=== PATIENT | male | born 1940 | race Caucasian/White ===

== ENCOUNTER 2017-07-15 09:58 | Emergency (ER) | payer MEDICARE ==
[~2017-07-15] VITALS: Ht 170.2 cm; Wt 86.0 kg
[2017-07-15 09:59] VITALS: BP 146/84; PULSE 125; RESP 20; TEMP 98.7; O2SAT 96
[2017-07-15] MEDS ORDERED: ROSU40 PO (10:14)
[2017-07-15] MEDS ORDERED: BENI40TA3 PO (10:14)
[2017-07-15] MEDS ORDERED: LEVO125T4 PO (10:14)
--- NOTE | 2017-07-15 10:40 | PD ---
HPI . back pain x 3 weeks Chief Complaint: Back/ Neck Pain or Injury Time Seen by Provider: 10:39 Travel History International Travel<30 days: No Contact w/Intl Traveler<30days: No Traveled to known affect area: No History of Present Illness HPI 77-year-old male with history of hyperlipidemia, hypertension and arthritis here with complaints of back pain x 3 weeks. Patient tells me that 3 years ago he had similar issues with his back and was told that he had either a pop or bulging disc. Patient says that he started having pain in his mid back for the past 3 weeks. He rates the pain as 9/10 without radiation elsewhere. He has tried [id number] Tylenol and Motrin without relief. He tells me he does have a very curved back, but that he has had it for years and that it hasn't caused him much issues. On presentation his heart rate is elevated. He denies any history of arrhythmia. He denies any chest pain or shortness of breath. He denies any recent illness, fever or chills. He denies bowel or bladder dysfunction. No saddle anesthesia. NO recent injury or trauma. He is accompanied by his . PFSH Past Medical History Cancer: Yes (lymphoma) High Cholesterol: Yes Chemotherapy: Yes Radiation Therapy: Yes Thyroid Disease: Yes Social History Alcohol Use: Yes (occassional) Tobacco Use: No Substance Use: No Allergies-Medications (Allergen,Severity, Reaction): Coded Allergies: No Known Allergies (Unverified , 07/15/17) Reported Meds & Prescriptions Reported Meds & Active Scripts Active Flexeril (Cyclobenzaprine HCl) 5 Mg Tab 5 Mg PO TID Reported Levothyroxine (Levothyroxine Sodium) 125 Mcg Tab 125 Mcg PO DAILY Benicar (Olmesartan) 40 Mg Tab 40 Mg PO DAILY Crestor (Rosuvastatin Calcium) 40 Mg Tab 40 Mg PO DAILY Review of Systems General / Constitutional: No: Fever Eyes: No: Visual changes HENT: No: Headaches Cardiovascular: No: Chest Pain or Discomfort Respiratory: No: Shortness of Breath Gastrointestinal: No: Abdominal Pain Genitourinary: No: Dysuria Musculoskeletal: Positive: Myalgias (right T spine), Pain (back pain) Skin: No Rash Neurologic: No: Weakness Psychiatric: No: Depression Endocrine: No: Polydipsia Hematologic/Lymphatic: No: Easy Bruising Physical Exam Narrative GENERAL: AAO x 3, no acute distress, Well-nourished, well-developed patient. SKIN: Warm and dry. No visible rashes or bruising. HEAD: Normocephalic and atraumatic. EYES: No scleral icterus. No injection or drainage. EOM intact, PERRLA ENT: No nasal drainage noted. Mucous membranes pink. Airway patent. NECK: Supple, trachea midline. No JVD. CARDIOVASCULAR: Tachycardic on examination at 108 RESPIRATORY: Breath sounds equal bilaterally. No accessory muscle use. No rhonchi or rales. GASTROINTESTINAL: Abdomen soft, non-tender, nondistended. EXTREMITIES: No cyanosis or edema. BACK: Significant kyphosis at T spine, paraspinal muscle tenderness on the right side of the T-spine. No tenderness along the actual spine or drop off. NEURO: CN II-12 intact, superintendent house strength normal b/l, UE and LE 5/5, no focal deficits, fully ambulatory, PSYCH: AAO x 3, normal affect. Data Data Last Documented VS Vital Signs Date Time Temp Pulse Resp B/P Pulse Ox O2 Delivery O2 Flow Rate FiO2 07/15/17 12:17 82 20 146/79 98 07/15/17 09:59 98.7 Room Air Orders Electrocardiogram (07/15/17 ) Complete Blood Count With Diff (07/15/17 10:48) Basic Metabolic Panel (Bmp) (07/15/17 10:48) Chest, Single Ap (07/15/17 ) Spine, Thoracic-Ap/Lat/Sw(3vw) (07/15/17 10:48) Urinalysis - C+S If Indicated (07/15/17 10:52) Ketorolac Inj (Toradol Inj) (07/15/17 11:00) Orphenadrine Inj (Norflex Inj) (07/15/17 11:00) Labs Laboratory Tests Test 07/15/17 11:04 White Blood Count 6.6 TH/MM3 Red Blood Count 5.22 MIL/MM3 Hemoglobin 16.0 GM/DL Hematocrit 48.2 % Mean Corpuscular Volume 92.2 FL Mean Corpuscular Hemoglobin 30.6 PG Mean Corpuscular Hemoglobin 33.2 % Concent Red Cell Distribution Width 13.9 % Platelet Count 162 TH/MM3 Mean Platelet Volume 10.1 FL Neutrophils (%) (Auto) 78.1 % Lymphocytes (%) (Auto) 14.9 % Monocytes (%) (Auto) 6.1 % Eosinophils (%) (Auto) 0.4 % Basophils (%) (Auto) 0.5 % Neutrophils # (Auto) 5.2 TH/MM3 Lymphocytes # (Auto) 1.0 TH/MM3 Monocytes # (Auto) 0.4 TH/MM3 Eosinophils # (Auto) 0.0 TH/MM3 Basophils # (Auto) 0.0 TH/MM3 CBC Comment DIFF FINAL Differential Comment Urine Color YELLOW Urine Turbidity CLEAR Urine pH 5.5 Urine Specific [place] 1.010 Urine Protein NEG mg/dL Urine Glucose (UA) NEG mg/dL Urine Ketones NEG mg/dL Urine Occult Blood TRACE Urine Nitrite NEG Urine Bilirubin NEG Urine Urobilinogen LESS THAN 2.0 MG/DL Urine Leukocyte Esterase NEG Urine RBC 1 /hpf Urine WBC LESS THAN 1 /hpf Microscopic Urinalysis Comment CULT NOT INDICATED Sodium Level 141 MEQ/L Potassium Level 4.2 MEQ/L Chloride Level 106 MEQ/L Carbon Dioxide Level 27.1 MEQ/L Anion Gap 8 MEQ/L Blood Urea Nitrogen 20 MG/DL Creatinine 1.35 MG/DL Estimat Glomerular Filtration 52 ML/MIN Rate Random Glucose 133 MG/DL Calcium Level 9.5 MG/DL MDM Medical Decision Making Medical Screen Exam Complete: Yes Emergency Medical Condition: Yes Medical Record Reviewed: Yes Differential Diagnosis pulled muscle, UTI, less likely nephrolithiasis, Narrative Course 77-year-old male here with complaints of back pain. On examination he does have some paraspinal muscle tenderness along his T- spine. He is tachycardic on examination, but seems to be a little bit anxious. I have ordered EKG, lab and x-rays. 1144: Patient's heart rate is improved. Labs thus far fairly unremarkable. X- rays have been ordered and are pending. He was given Toradol and Norflex for pain control. patient's pain is 5-6/10. Laboratory Tests Test 07/15/17 11:04 White Blood Count 6.6 TH/MM3 Red Blood Count 5.22 MIL/MM3 Hemoglobin 16.0 GM/DL Hematocrit 48.2 % Mean Corpuscular Volume 92.2 FL Mean Corpuscular Hemoglobin 30.6 PG Mean Corpuscular Hemoglobin 33.2 % Concent Red Cell Distribution Width 13.9 % Platelet Count 162 TH/MM3 Mean Platelet Volume 10.1 FL Neutrophils (%) (Auto) 78.1 % Lymphocytes (%) (Auto) 14.9 % Monocytes (%) (Auto) 6.1 % Eosinophils (%) (Auto) 0.4 % Basophils (%) (Auto) 0.5 % Neutrophils # (Auto) 5.2 TH/MM3 Lymphocytes # (Auto) 1.0 TH/MM3 Monocytes # (Auto) 0.4 TH/MM3 Eosinophils # (Auto) 0.0 TH/MM3 Basophils # (Auto) 0.0 TH/MM3 CBC Comment DIFF FINAL Differential Comment Urine Color YELLOW Urine Turbidity CLEAR Urine pH 5.5 Urine Specific [place] 1.010 Urine Protein NEG mg/dL Urine Glucose (UA) NEG mg/dL Urine Ketones NEG mg/dL Urine Occult Blood TRACE Urine Nitrite NEG Urine Bilirubin NEG Urine Urobilinogen LESS THAN 2.0 MG/DL Urine Leukocyte Esterase NEG Urine RBC 1 /hpf Urine WBC LESS THAN 1 /hpf Microscopic Urinalysis Comment CULT NOT INDICATED Sodium Level 141 MEQ/L Potassium Level 4.2 MEQ/L Chloride Level 106 MEQ/L Carbon Dioxide Level 27.1 MEQ/L Anion Gap 8 MEQ/L Blood Urea Nitrogen 20 MG/DL Creatinine 1.35 MG/DL Estimat Glomerular Filtration 52 ML/MIN Rate Random Glucose 133 MG/DL Calcium Level 9.5 MG/DL mild elevated of BUN/Creatinine; oral hydration Last Impressions Thoracic Spine X-Ray 07/15/17 1048 Signed Impressions: Service Date/Time: Saturday, July 15, 2017 11:45 - CONCLUSION: Minimal loss of vertebral body heights as described above. Acute compression on chronic can not be excluded. I have no prior films. MRI could be used to measure this question. Crow Macedo MD FACR In regards to the possible compression fracture. Patient does not have any pain in the Spine. His pain is along his paraspinal muscles on the right side T spine. His neuro exam is completely normal. He can have this followed as an outpatient. He is improved with toradol and norflex. I will provide him with a short course of muscle relaxers upon discharge. We have discussed the side effects. I discussed the case with my attending Dr. Stewart, who is in agreement with the treatment plan. EKG was reviewed by Dr. Ventura. I have discussed all results with patient and his at bedside. I recommend outpatient follow-up with his primary care provider. I also recommended he have this T-spine x-ray followed and have outpatient MRI. Patient verbalized understanding of instructions, questions were answered, and thanked me for their care. I advised them if their condition worsens, please return to the nearest emergency room for further care. Diagnosis Primary Impression: Muscle strain Patient Instructions: General Instructions Additional Instructions: Muscle relaxers can cause drowsiness. Do not drive, swim or operate heavy machinery while using these medications. Please return to emergency department if your symptoms return or worsen. Follow up with your primary care provider. Take medications as prescribed. Med/Other Pt SpecificInfo: Prescription(s) given Scripts Cyclobenzaprine (Flexeril)5 Mg Tab5 Mg PO TID #21 TAB Prov:Ty Ventura MD 07/15/17 Disposition: 01 DISCHARGE HOME Condition: Stable Kanchan Chávez Jul 15, 2017 10:40
[2017-07-15] MEDS ORDERED: ORPHENADRINE INJ 60 MG/2 ML AMP IM ONE (11:00)
[2017-07-15] MEDS ORDERED: KETOROLAC TROMETHAMINE 60 MG/2 ML (IM) VIAL IM ONE (11:00)
[2017-07-15 11:05] VITALS: BP_SYST 175; BP_SYST 191; BP_DIAS 102; BP_DIAS 93; PULSE 110; RESP 20; O2SAT 99
[2017-07-15 11:27] LABS: AUTOMATED NEUTROPHIL # 5.2 TH/MM3 (1.8-7.7); BASOPHIL % 0.5 % (0.0-2.0); EOSINOPHIL % 0.4 % (0.0-4.0); HEMATOCRIT 48.2 % (39.0-51.0); HEMO FLAGS DIFF FINAL; LYMPH % 14.9 % (9.0-44.0); MEAN CELL VOLUME 92.2 FL (80.0-100.0); MEAN CORPUSCULAR HEMOGLOBIN 30.6 PG (27.0-34.0); MEAN CORPUSCULAR HGB CONC 33.2 % (32.0-36.0); MONO % 6.1 % (0.0-8.0); NEUT % 78.1 % (16.0-70.0); PLATELET COUNT 162 TH/MM3 (150-450); RED BLOOD COUNT 5.22 MIL/MM3 (4.50-5.90); RED CELL DISTRIBUTION WIDTH 13.9 % (11.6-17.2); WHITE BLOOD COUNT 6.6 TH/MM3 (4.0-11.0)
[2017-07-15 11:30] VITALS: PULSE 99; RESP 20; O2SAT 99
[2017-07-15 11:35] LABS: BLOOD, URINE TRACE (NEG); GLUCOSE,URINE NEG (NEG); KETONE, URINE NEG (NEG); NITRITE,URINE NEG (NEG); PH, URINE 5.5 (5.0-8.5); URINE COLOR YELLOW (YELLW/STRAW)
[2017-07-15 11:40] LABS: COMMENT (UR) CULT NOT INDICATED; CULTURE IF INDICATED CULT NOT INDICATED
--- NOTE | 2017-07-15 11:55 | RADRPT ---
EXAM DATE/TIME: 07/15/2017 11:45 [facility] COMPARISON: No previous studies available for comparison. INDICATIONS : No known injury. Pain in mid to lower back for three weeks. MEDICAL HISTORY : Hypertension. SURGICAL HISTORY : None. ENCOUNTER: Initial ACUITY: 3 weeks PAIN SCORE: 7/10 LOCATION: Bilateral T and L spine FINDINGS: There are degenerative changes in the mid to lower thoracic spine with loss of minimal vertebral body height at T11 and T12. I have no prior films for comparison. Pedicles are intact. CONCLUSION: Minimal loss of vertebral body heights as described above. Acute compression on chronic can not be e xcluded. I have no prior films. MRI could be used to measure this question. Crow Macedo MD FACR on July 15, 2017 at 11:52 Board Certified Radiologist. This report was verified electronically.
--- NOTE | 2017-07-15 12:08 | RADRPT ---
EXAM DATE/TIME: 07/15/2017 11:41 [facility] COMPARISON: No previous studies available for comparison. INDICATIONS : No known injury. Pain in mid to lower back for three weeks. MEDICAL HISTORY : Hypertension. SURGICAL HISTORY : None. ENCOUNTER: Initial ACUITY: 3 weeks PAIN SCORE: 7/10 LOCATION: Bilateral T and L Spine. FINDINGS: AP view of the chest demonstrates a normal-sized cardiac silhouette. No effusion, consolidation, or p neumothorax is visualized. The bones and soft tissues demonstrate no acute abnormality. CONCLUSION: No acute cardiopulmonary abnormality is identified. Jose A Mcgowan MD on July 15, 2017 at 12:06 Board Certified Radiologist. This report was verified electronically.
[2017-07-15 12:12] LABS: BICARBONATE 27.1 MEQ/L (21.0-32.0); POTASSIUM 4.2 MEQ/L (3.5-5.1)
[2017-07-15 12:17] VITALS: BP 146/79; PULSE 82; RESP 20; O2SAT 98
[2017-07-15] MEDS ORDERED: CYCL5TAB PO (12:19)
--- NOTE | 2017-07-15 14:07 | EKG ---
Date Performed: 07/15/2017 Time Performed: 11:13:54 PTAGE: 77 years EKG: Baseline artifact present Sinus rhythm WITH FREQUENT VENTRICULAR PREMATURE COMPLEXES POSSIBLE LEFT ATRIAL ENLARGEMENT LOW QRS VOLTAGE IN [place] ECORDIAL LEADS INFERIOR MYOCARDIAL INFARCTION ABNORMAL ECG NO PREVIOUS TRACING DOCTOR: Avinash Matthews Interpretating Date/Time 07/15/2017 14:06:00
== END 2017-07-15 12:42 | disposition home or self-care (01) ==
LOC: NEPD 09:58
DX: S29.012A Strain of muscle and tendon of back wall of thorax, initial encounter (principal); R94.31 Abnormal electrocardiogram [ECG] [EKG]; R00.0 Tachycardia, unspecified; E07.9 Disorder of thyroid, unspecified; E78.5 Hyperlipidemia, unspecified; Z87.39 Personal history of other diseases of the musculoskeletal system and connective tissue; Z85.72 Personal history of non-Hodgkin lymphomas; X58.XXXA Exposure to other specified factors, initial encounter
CPT/HCPCS: 71010; 72072; 80048; 81001; 85025; 93005; 96372; 99285; J1885; J2360